=== PATIENT | female | born 1955 | race Caucasian/White ===

== ENCOUNTER → 2019-02-24 | Outpatient (CLI) | payer BC | END | disposition home or self-care (01) | LOC: CFH 12:03 | PROVIDERS: ATTEND Family Medicine | DX: Z12.31 Encounter for screening mammogram for malignant neoplasm of breast (principal); E04.1 Nontoxic single thyroid nodule; M81.0 Age-related osteoporosis without current pathological fracture | CPT/HCPCS: 76536; 77063; 77067; 77080 ==